=== PATIENT | male | born 1970 | race Hispanic/Latino ===

== ENCOUNTER 2021-02-25 21:53 | Emergency (ER) | payer BC ==
[2021-02-25] MEDS ORDERED: IOHEXOL 350 MG/ML 100ML INFUS..BTL IV ONE (22:15)
[2021-02-25 22:17] LABS: BASOPHILS % (AUTO) 0.7 % (0.0-5.0); EOSINOPHILS % (AUTO) 0.9 % (0.0-8.0); LYMPHOCYTES % (AUTO) 16.3 % (21.0-51.0); MEAN CORPUSCULAR HGB CONC 33.5 g/dL (32.0-36.0); MEAN CORPUSCULAR VOLUME 92.4 fL (79-99); MONOCYTES % (AUTO) 8.1 % (3.0-13.0); NEUTROPHILS % (AUTO) 73.5 % (40.0-77.0); PLATELET COUNT (AUTO) 187 K/uL (130-400); RED BLOOD CELL COUNT(AUTO) 5.52 MIL/uL (4.50-6.20); RED CELL DISTRIBUTION WIDTH 12.5 % (11.0-15.5); WHITE BLOOD COUNT (AUTO) 10.5 K/uL (4.8-10.8)
[2021-02-25 22:28] LABS: CREATININE 1.3 mg/dL (0.5-1.5); POTASSIUM 4.2 mmol/L (3.5-5.1)
[2021-02-25 22:32] LABS: ALBUMIN 4.4 g/dL (3.5-5.0); BILIRUBIN,TOTAL 0.6 mg/dL (0.2-1.0); TOTAL PROTEIN, SERUM 8.3 g/dL (6.0-8.3)
[2021-02-25 22:38] LABS: INR 1.01 (0.85-1.15); PARTIAL THROMBOPLASTIN TIME 23.9 SEC (26.3-35.5); PROTHROMBIN TIME 10.5 SEC (9.6-11.6)
[2021-02-25] MEDS ORDERED: SODIUM CHLORIDE 0.9% 1000ML 1,000 ML IV ONE (23:07)
[2021-02-25] MEDS ORDERED: ONDANSETRON HCL 4 MG/2 ML VIAL ONE (23:08)
[2021-02-25] MEDS ORDERED: MORPHINE SULFATE 4 MG/1ML SYG ONE (23:09)
[2021-02-25 23:28] LABS: APPEARANCE,URINE Clear (CLEAR); BILIRUBIN,URINE Negative (NEGATIVE); COLOR,URINE Yellow (YELLOW); GLUCOSE, URINE (UA) Negative (NEGATIVE); KETONES,URINE Negative (NEGATIVE); LEUKOCYTE ESTERASE ,URINE Negative (NEGATIVE); NITRATE,URINE Negative (NEGATIVE); OCCULT BLOOD,URINE Negative (NEGATIVE); PH,URINE 5.5 (5.0-8.0); PROTEIN,URINE Negative (NEGATIVE)
[2021-02-25 23:38] LABS: AMPHET/METH SCREEN,URINE NEGATIVE (NEGATIVE); BARBITURATE SCREEN, URINE NEGATIVE (NEGATIVE); BENZODIAZEPINES SCREEN,URINE NEGATIVE (NEGATIVE); CANNABINOID SCREEN,URINE NEGATIVE (NEGATIVE); COCAINE SCREEN,URINE NEGATIVE (NEGATIVE); OPIATE SCREEN,URINE NEGATIVE (NEGATIVE); PHENCYCLIDINE SCREEN,URINE NEGATIVE (NEGATIVE)
[2021-02-26] MEDS ORDERED: METHYLPREDNISOLONE SOD SUCC 40MG/ML 1ML ONE (00:25)
== END 2021-02-26 00:43 | disposition home or self-care (01) ==
LOC: EDH 21:53
DX: M54.2 Cervicalgia (principal); R51.9 Headache, unspecified; V49.09XA Driver injured in collision with other motor vehicles in nontraffic accident, initial encounter; Y93.89 Activity, other specified; Y92.89 Other specified places as the place of occurrence of the external cause; Y99.8 Other external cause status
CPT/HCPCS: 36415; 70450; 71260; 72125; 74177; 80053; 80305; 81003; 83690; 84484; 85025; 85610; 85730; 93005; 96361; 96372; 96374; 96375; 99285; J2270; J2405; J2920; J7030; Q9967

== ENCOUNTER 2025-08-04 13:05 | Emergency (ER) | payer BC ==
[~2025-08-04] VITALS: Ht 177.8 cm; Wt 127.0 kg
[2025-08-04] MEDS: 0.9%NACL 1000ML 1,000 ML IV ONE (13:38)
[2025-08-04] MEDS: FAMOTIDINE 20MG VIAL IV ONE (13:39)
--- NOTE | 2025-08-04 15:29 | ERN ---
ED Note History of Present Illness Stated Complaint: BEE STINGS Chief Complaint: Allergic Reaction Time Seen by MD: 13:09 Time Seen by Midlevel: 13:09 Dictation: The patient is a 55-year-old male with history of appendectomy who presents to the emergency department with complaints of bee sting to the left face and scalp onset just prior to arrival while he was cutting his long. Patient denies any shortness of breath or any difficulty swallowing. Allergies: Coded Allergies: No Known Allergies (Unverified Allergy, Unknown, 02/26/21) Past Medical History Past Medical History: No Pertinent History Surgical History: Appendectomy RN Note Reviewed/Agreed w/PFSH: Yes Review of System Dictation Constitutional: Negative for fever,chills, and weight loss Eyes: Negative for injury, pain,redness, and discharge ENT: Negative for injury,pain or swelling Cardiovascular: Negative for chest pain, palpitations, and edema Respiratory: Negative for shortness of breath, cough, and wheezing, Abdomen/GI: Negative for abdominal pain, nausea, vomiting, diarrhea, and constipation Back: Negative for injury and pain : Negative for injury, bleeding and discharge MS/Extremity: Negative for injury and deformity Skin: Negative for rash, and discoloration positive for bee sting Neuro: Negative for headache, weakness, numbness, tingling, and seizure Psych: Negative for suicide ideation, homicidal ideation, and hallucinations Initial Vital Sign VS Vital Signs Date Time Temp Pulse Resp B/P (MAP) Pulse Ox O2 Delivery O2 Flow Rate FiO2 08/04/25 13:05 97.7 94 20 140/97 95 Room Air 08/04/25 14:58 0 21 Physical Exam Dictation Vital Signs reviewed General Appearance: Alert, oriented x 3, no acute distress, well developed, nourished. Head and Face: non-traumatic. Eyes: PERRL, pink conjunctivas, eyelid no trauma, anterior chamber with arcus senilis. Ears: Pinnas intact and no signs of trauma or erythema ear canals clear and no discharge TM no erythema Nose: No discharge, no bleeding. Oropharynx: Mouth normal, tongue pink. Normal size tongue, no drooling pharynx clear,no erythema, tonsils no exudates, no abscesses noted, mucous membrane moist Neck: Supple, non-tender, no thyromegaly, no masses, no JVD, no bruits Breast:Deferred Chest:No tenderness, no crepitus, no paradoxical movement, no retractions Lungs:Clear, well-ventilated, symmetric, no rales, no wheezing, no rhonchi, no stridor, good breath sounds bilaterally Heart: Regular rate, regular rhythm, no murmur, no gallops Vascular: no peripheral edema, Abdomen: Soft, positive bowel sounds, nondistended, no guarding, nontender, no rebound, no masses no hepatomegaly, no splenomegaly, no Santoyo's sign, no hernias. Rectal: Deferred Genital: Deferred Neurological: Normal speech, motor function intact, sensory function intact Musculoskeletal: Neck nontender, full range of motion, back nontender, full range of motion, Extremities: nontender, full range of motion Skin: Color pink, dry, no turgor, no rash, no lacerations, no abrasions, no contusions. Mild erythema noted to left cheek area with a mild swelling, no wounds noted to chest abdomen or back. Lymphatic: Deferred Results (Laboratory/Radiology) Labs Reviewed?: Yes ED Course ED Course Orders Procedure Category Date Status Time Diphenhydramine Hcl PHA 08/04/25 Complete (Benadryl Inj) 13:30 Famotidine 20mg Vial PHA 08/04/25 Complete (Pepcid 20mg Vial) 13:30 Methylprednisolone PHA 08/04/25 Complete Succ 125mg (Solu-Medr 13:30 0.9%Nacl 1000ml (Ns PHA 08/04/25 Complete 1000ml) 13:30 Current Medications Medications (Trade) Dose Ordered Sig/Rita Route PRN Reason Start Time Stop Time Status Last Admin Dose Admin Diphenhydramine HCl (BENAdryl INJ) 25 mg ONCE ONCE IV 08/04/25 13:30 08/04/25 13:31 DC 08/04/25 13:39 Famotidine (Pepcid 20mg Vial) 20 mg ONCE ONCE IV 08/04/25 13:30 08/04/25 13:31 DC 08/04/25 13:39 Methylprednisolone Sodium Succinate (Solu-medROL 125MG) 125 mg ONCE ONCE IVP 08/04/25 13:30 08/04/25 13:31 DC 08/04/25 13:39 Sodium Chloride 1,000 ml @ 0 mls/hr ONCE ONCE IV 08/04/25 13:30 08/04/25 13:31 DC 08/04/25 13:38 Vital Signs Date Time Temp Pulse Resp B/P (MAP) Pulse Ox O2 Delivery O2 Flow Rate FiO2 08/04/25 14:58 97.9 88 20 135/89 97 Room Air* 0 21 08/04/25 13:05 97.7 94 20 140/97 95 Room Air Medical Decision Making MDM The patient is a 55-year-old male with history of appendectomy who presents to the emergency department with complaints of bee sting to the left face and scalp onset just prior to arrival while he was cutting his long. Patient denies any shortness of breath or any difficulty swallowing. Patient symptoms have improved. Patient with no signs of anaphylaxis, clear lung sounds bilaterally. No swelling to tongue, patent airway. Patient will be discharged to follow up with PCP. Differential diagnosis: Bee stings, allergic reaction, anaphylaxis Need for hospitalization: Patient does not meet criteria for hospitalization. There are no social concerns with this patient. DX & DISP Disposition: Discharge Departure Impression: Primary Impression: Bee sting Condition: Stable Scripts Diphenhydramine HCl (Benadryl) 50 Mg Cap 50 MG PO Q6H for itching/rash, #20 CAP 0 Refills Prov: RENETTA HEARD WOLF HUNTER 08/04/25 Famotidine (Pepcid) 20 Mg Tablet 1 TAB PO DAILY for 5 Days, #5 TAB 0 Refills Prov: RENETTA HEARD WOLF HUNTER 08/04/25 Additional Instructions: Take your medications as prescribed. If you develop severe facial swelling, drooling or anything worsens please return to ER. FOLLOW-UP WITH PRIMARY CARE PROVIDER IN 1 TO 2 DAYS. TAKE MEDICATIONS DIR ECTED HERE IN THE EMERGENCY ROOM. OKAY TO CONTINUE HOME MEDICATIONS UNLESS OTHERWISE DISCUSSED DURING YOUR VISIT IN THE EMERGENCY ROOM TODAY. RETURN TO YOUR NEAREST EMERGENCY ROOM IF SYMPTOMS WORSEN OR IF THERE IS NO IMPROVEMENT. CALL 911 IF YOU NEED IMMEDIATE ASSISTANCE. TAKE TYLENOL [id number] NEEDED AND IF NO CONTRAINDICATIONS ARE PRESENT. INCREASE ORAL HYDRATION. A WOUND CULTURE OR URINE CULTURE WAS ORDERED HERE IN THE EMERGENCY ROOM DEPARTMENT PLEASE FOLLOW-UP WITH PRIMARY CARE PROVIDER AND ADVISE THEM TO GET REPEAT PORTS FROM OUR FACILITY. IF YOU HAD ANY EDUARDO WRAP/SPLINTS THAT WERE APPLIED HERE, PLEASE DO NOT REMOVE THEM UNTIL YOU SEE YOUR PRIMARY CARE OR SPECIALTY. Referrals: SELF,REFERRAL (PCP) Time of Disposition: 16:04 I have reviewed the case, and I agree with, Diagnosis and Plan RENETTA HEARD WOLF HUNTER Aug 04, 2025 15:29
[2025-08-04] MEDS ORDERED: FAMO-136 PO (16:05)
[2025-08-04] MEDS ORDERED: DIPH50CA38 PO (16:05)
[2025-08-04 16:14] VITALS: BP 127/85; PULSE 85; RESP 20; TEMP 97.9; O2SAT 95
== END 2025-08-04 16:14 | disposition home or self-care (01) ==
LOC: EDH 13:05
DX: T63.441A Toxic effect of venom of bees, accidental (unintentional), initial encounter (principal); Z90.49 Acquired absence of other specified parts of digestive tract; Y92.89 Other specified places as the place of occurrence of the external cause
CPT/HCPCS: 99284; 96374; 96375; 96361; J2919; J1200; J3490; J7030